=== PATIENT | male | born 1970 | race American Indian/Alaskan Native ===

== ENCOUNTER 2021-03-15 21:27 | Emergency (ER) | payer MEDICARE ==
[2021-03-16 00:14] VITALS: BP 149/83
[2021-03-16] MEDS ORDERED: DOCUSATE SODIUM 100 MG CAP PO ONE (00:55)
[2021-03-16] MEDS ORDERED: MAGNESIUM CITRATE 300 ML ORAL LIQD PO ONE (00:55)
--- NOTE | 2021-03-16 01:37 | Emergency Department Report ---
ED Abdominal Pain HPI - General Chief Complaint: Abdominal Pain Stated Complaint: CONSTIPATION PUI?: No Source: patient Mode of arrival: Ambulatory Limitations: No Limitations - History of Present Illness Initial Comments: Patient is a 50-year-old -[place] male with a history of hypertension who presents to the ED with acute onset persistent intermittent mild lower abdominal pain and rectal pain for the last 5 days. Patient states that he has not had any bowel movement in 5 days and suspect that he may be constipation. Patient states that whenever he has a bowel movement the stool is hard and causing rectal pain and irritation. Patient denies nausea, vomiting, chest pain, shortness of breath, dysuria, urinary frequency and urgency, urinary retention, hematuria, low back pain, diarrhea or change in vision, fever and chills. MD Complaint: abdominal pain, other (constipation) -: Sudden, days(s) (5) Location: suprapubic Radiation: none Migration to: no migration Severity: mild Severity scale (0 -10): 2 Quality: aching Consistency: intermittent Improves With: nothing Worsens With: nothing Context: other (constipation) Associated Symptoms: denies other symptoms, constipation, anorexia. denies: nausea, vomiting, diarrhea, fever, chills, dysuria, hematemesis, hematochezia, melena, hematuria, syncope, other - Related Data Previous Rx's Medication Instructions Recorded Last Taken Type Docusate Sodium [Dok] 100 mg PO Q12H #60 tablet 03/16/21 Unknown Rx Magnesium Citrate 296 ml PO ONCE #1 bottle 03/16/21 Unknown Rx Allergies Allergy/AdvReac Type Severity Reaction Status Date / Time No Known Allergies Allergy Unverified 03/15/21 22:02 ED Review of Systems ROS: Stated complaint: CONSTIPATION Other details as noted in HPI Constitutional: denies: chills, fever Eyes: denies: eye pain, eye discharge, vision change ENT: denies: ear pain, throat pain Respiratory: denies: cough, shortness of breath, wheezing Cardiovascular: denies: chest pain, palpitations Endocrine: no symptoms reported Gastrointestinal: constipation. denies: abdominal pain, nausea, vomiting, diarrhea Genitourinary: denies: urgency, dysuria Musculoskeletal: denies: back pain, joint swelling, arthralgia Skin: denies: rash, lesions Neurological: denies: headache, weakness, paresthesias Psychiatric: denies: anxiety, depression Hematological/Lymphatic: denies: easy bleeding, easy bruising ED Past Medical Hx - Past Medical History Previous Medical History?: No - Surgical History Past Surgical History?: No - Medications Home Medications: Home Medications Medication Instructions Recorded Confirmed Last Taken Type Docusate Sodium [Dok] 100 mg PO Q12H #60 tablet 03/16/21 Unknown Rx Magnesium Citrate 296 ml PO ONCE #1 bottle 03/16/21 Unknown Rx ED Physical Exam - General Limitations: No Limitations General appearance: alert, in no apparent distress - Head Head exam: Present: atraumatic, normocephalic, normal inspection - Eye Eye exam: Present: normal appearance, PERRL, EOMI Pupils: Present: normal accommodation - ENT ENT exam: Present: normal exam, normal orophraynx, mucous membranes moist, TM's normal bilaterally, normal external ear exam - Neck Neck exam: Present: normal inspection, full ROM - Respiratory Respiratory exam: Present: normal lung sounds bilaterally. Absent: respiratory distress, wheezes, rales, stridor, chest wall tenderness, accessory muscle use, decreased breath sounds - Cardiovascular Cardiovascular Exam: Present: regular rate, normal rhythm, normal heart sounds. Absent: systolic murmur, diastolic murmur, rubs, gallop - GI/Abdominal GI/Abdominal exam: Present: soft, normal bowel sounds. Absent: tenderness, guarding, rebound, hyperactive bowel sounds, hypoactive bowel sounds, organomegaly - Extremities Exam Extremities exam: Present: normal inspection, full ROM, normal capillary refill - Back Exam Back exam: Present: normal inspection, full ROM. Absent: tenderness, CVA tenderness (R), CVA tenderness (L), muscle spasm, paraspinal tenderness, vertebral tenderness - Neurological Exam Neurological exam: Present: alert, oriented X3, CN II-XII intact, normal gait, reflexes normal - Psychiatric Psychiatric exam: Present: normal affect, normal mood - Skin Skin exam: Present: warm, dry, intact, normal color. Absent: rash ED Course Vital Signs 03/15/21 22:03 Temperature 98.9 F Pulse Rate 75 Respiratory 20 Rate Blood Pressure 149/83 O2 Sat by Pulse 96 Oximetry ED Medical Decision Making - Medical Decision Making This is a 50-year-old -[place] male with a history of hypertension who presents to the ED with acute onset persistent intermittent mild lower abdominal pain and rectal pain for the last 5 days. Patient states that he has not had any bowel movement in 5 days and suspect that he may be constipation. Patient states that whenever he has a bowel movement the stool is hard and causing rectal pain and irritation. In the ED, patient is alert and oriented x3 and is not in any distress. Based on the history and physical exam findings, patient symptoms are likely due to constipation. Patient was treated in the ED with a laxative and also discharged home on laxatives and stool softeners. Patient was advised to increase fluid intake and also to increase high-fiber in his diet in order to help control constipation. Patient was advised return to the ED immediately if symptoms get worse. Patient was otherwise advised return to the ED immediately if symptoms get worse. - Differential Diagnosis constipation; hemorrhoids; anal tear Critical care attestation.: If time is entered above; I have spent that time in minutes in the direct care of this critically ill patient, excluding procedure time. ED Disposition Clinical Impression: Constipation Qualifiers: Constipation type: unspecified constipation type Qualified Code(s): K59.00 - Constipation, unspecified Disposition: DC- TO HOME OR SELFCARE Is pt being admited?: No Does the pt Need Aspirin: No Condition: Stable Instructions: Constipation, Adult, [id number] Additional Instructions: Take medication with food, drink plenty of fluids and follow-up with your primary care physician in 5 to 7 days for reevaluation. Return to the ED immediately if symptoms get worse. Prescriptions: Docusate Sodium [Dok] 100 mg PO Q12H #60 tablet Magnesium Citrate 296 ml PO ONCE #1 bottle Referrals: [facility] [Provider Group] - 3-5 Days Time of Disposition: 01:35 Print Language: SPANISH
== END 2021-03-16 02:20 | disposition home or self-care (01) ==
LOC: ED 21:27
DX: K59.00 Constipation, unspecified (principal); Z79.899 Other long term (current) drug therapy
CPT/HCPCS: 99282